=== PATIENT | male | born 2000 | race Caucasian/White ===

== ENCOUNTER 2025-01-19 12:30 | Inpatient (IN) | payer OTHER ==
[~2025-01-19] VITALS: Ht 175.3 cm; Wt 79.8 kg
[2025-01-19 15:50] VITALS: BP 131/82; PULSE 62; RESP 18; TEMP 98.2; O2SAT 99
[2025-01-19 20:00] VITALS: O2SAT 98
[2025-01-19 21:00] VITALS: BP 111/59; PULSE 64; RESP 18; TEMP 99.1; O2SAT 98
[2025-01-19] MEDS: ACETAMINOPHEN 325 MG TABLET PO PRN (21:18)
[2025-01-19] MEDS: FAMOTIDINE 20 MG TABLET PO SCH (21:19)
[2025-01-19] MEDS: SENNOSIDES 8.6 MG TABLET PO SCH (21:19)
[2025-01-19] MEDS: GABAPENTIN 100 MG CAPSULE PO SCH (21:19)
[2025-01-19] MEDS: CHLORHEXIDINE GLUCONATE 0.12% 15 ML UDCUP ORAL RINSE PO SCH (21:19)
[2025-01-19] MEDS: DOCUSATE SODIUM 100 MG CAPSULE PO SCH (21:19)
[2025-01-19] MEDS: MELATONIN 3 MG TABLET PO PRN (22:38)
[2025-01-20 07:23] LABS: PLATELET COUNT (AUTO) 284 K/uL (150-450); RED BLOOD CELL COUNT(AUTO) 4.01 MIL/uL (4.50-5.90); RED CELL DISTRIBUTION WIDTH 13.2 % (11.5-14.5); WHITE BLOOD COUNT (AUTO) 5.5 K/uL (4.5-11.0)
[2025-01-20 07:36] LABS: ASPARTATE AMINOTRANSFERASE 83 U/L (15-37); CALCIUM, TOTAL 9.3 mg/dL (8.8-10.5); CREATININE 1.23 mg/dL (0.60-1.30); GLOMERULAR FILTR. RATE CALC > 60 mL/min (>60); GLUCOSE,RANDOM 93 mg/dL (70-110); SODIUM SERUM 144 mmol/L (136-145); TOTAL PROTEIN, SERUM 6.8 g/dL (6.4-8.2); UREA NITROGEN, BLOOD 16 mg/dL (7-18)
[2025-01-20 08:00] VITALS: BP 121/78; PULSE 55; RESP 19; TEMP 97.7; O2SAT 98
[2025-01-20] MEDS: ENOXAPARIN SODIUM 40 MG/0.4 ML PF SYRINGE SQ SCH (08:18)
[2025-01-20] MEDS: SILVER SULFADIAZINE 1% 25 GM CREAM TUBE TP SCH (08:19)
[2025-01-20] MEDS: LIDOCAINE 5% 36 GM OINTMENT TP SCH (08:19)
[2025-01-20] MEDS: ETHYL ALCOHOL 62% ANTISEPTIC NASAL SANITIZER 0.6 ML AMPUL NASAL SCH (08:19)
[2025-01-20] MEDS: POLYETHYLENE GLYCOL 3350 17 GM PACKET PO SCH (08:20)
[2025-01-20] MEDS: OxyCODONE HCL 5 MG IR TABLET PO PRN (08:20)
[2025-01-20 20:20] VITALS: BP 118/69; PULSE 58; RESP 18; TEMP 98.4; O2SAT 100
[2025-01-20 21:00] VITALS: O2SAT 100
[2025-01-21 05:11] VITALS: BP 116/70; PULSE 59; RESP 18; O2SAT 99
[2025-01-21 08:00] VITALS: BP 114/67; PULSE 53; RESP 19; TEMP 97.5; O2SAT 98
[2025-01-21 20:02] VITALS: BP 126/73; PULSE 59; RESP 18; TEMP 98.1; O2SAT 99
[2025-01-21 23:00] VITALS: O2SAT 99
[2025-01-22 08:05] VITALS: BP 127/72; PULSE 69; RESP 19; TEMP 98.3; O2SAT 98
[2025-01-22] MEDS ORDERED: MELATONIN 3 MG TABLET PO PRN (09:15)
[2025-01-22 20:30] VITALS: BP 110/64; PULSE 64; RESP 18; TEMP 97.8; O2SAT 98
[2025-01-23 08:00] VITALS: BP 109/69; PULSE 45; RESP 19; TEMP 97.9; O2SAT 100
[2025-01-23 09:30] VITALS: BP 116/70; PULSE 61
[2025-01-23 11:03] VITALS: O2SAT 100
[2025-01-23 20:05] VITALS: BP 110/62; PULSE 55; RESP 18; TEMP 97.3; O2SAT 99
[2025-01-24 07:40] VITALS: BP 102/54; PULSE 45; RESP 19; TEMP 97.9; O2SAT 100
[2025-01-24 09:42] VITALS: BP 127/84; PULSE 73; RESP 19; O2SAT 99
[2025-01-24 20:15] VITALS: BP 105/51; PULSE 61; RESP 19; TEMP 98.4; O2SAT 98
[2025-01-24] MEDS: MELATONIN 5 MG TABLET PO PRN (23:32)
[2025-01-25 08:50] VITALS: BP 106/63; PULSE 55; RESP 18; TEMP 97.4; O2SAT 98
[2025-01-25 10:29] VITALS: O2SAT 98
[2025-01-25 20:00] VITALS: BP 123/76; PULSE 66; RESP 19; TEMP 97.6; O2SAT 98
[2025-01-26 08:02] VITALS: BP 108/70; PULSE 56; RESP 20; TEMP 97.7; O2SAT 98
[2025-01-26] MEDS: ERGOCALCIFEROL (VIT D2) 50,000 UNITS [1,250 MCG] CAPSULE PO SCH (08:06)
[2025-01-26 23:20] VITALS: BP 113/52; PULSE 68; RESP 18; TEMP 98; O2SAT 98
[2025-01-26 23:25] VITALS: O2SAT 98
[2025-01-27] MEDS ORDERED: ASPI-4 PO (03:11)
[2025-01-27] MEDS ORDERED: CAPS57CR5 TP (03:20)
[2025-01-27] MEDS ORDERED: POLY17PO47 PO (03:20)
[2025-01-27] MEDS ORDERED: SENN-376 PO (03:20)
[2025-01-27] MEDS ORDERED: GABA-1216 PO (03:20)
[2025-01-27] MEDS ORDERED: IBUP-1493 PO (03:20)
[2025-01-27] MEDS ORDERED: ACET650S39 PO (03:20)
[2025-01-27] MEDS ORDERED: NORT25 PO (03:20)
[2025-01-27] MEDS ORDERED: GABA-1201 PO (03:20)
[2025-01-27] MEDS ORDERED: METH-659 PO (03:20)
[2025-01-27 07:32] LABS: ASPARTATE AMINOTRANSFERASE 32 U/L (15-37); CALCIUM, TOTAL 9.5 mg/dL (8.8-10.5); CREATININE 1.18 mg/dL (0.60-1.30); GLOMERULAR FILTR. RATE CALC > 60 mL/min (>60); GLUCOSE,RANDOM 94 mg/dL (70-110); SODIUM SERUM 138 mmol/L (136-145); TOTAL PROTEIN, SERUM 7.7 g/dL (6.4-8.2); UREA NITROGEN, BLOOD 18 mg/dL (7-18)
[2025-01-27 08:10] VITALS: BP 106/64; PULSE 60; RESP 19; TEMP 97.4; O2SAT 98
[2025-01-27 11:45] VITALS: O2SAT 98
[2025-01-27 20:00] VITALS: BP 106/51; PULSE 65; RESP 18; TEMP 98.1; O2SAT 98
[2025-01-28 01:43] VITALS: O2SAT 98
[2025-01-28 08:00] VITALS: BP 109/70; PULSE 64; RESP 18; TEMP 97.9; O2SAT 98
[2025-01-28 17:50] VITALS: BP 121/74; PULSE 69; RESP 18; TEMP 97.7; O2SAT 98
[2025-01-28 19:57] VITALS: BP 118/60; PULSE 62; RESP 18; TEMP 98.2; O2SAT 99
[2025-01-28 23:47] VITALS: O2SAT 99
[2025-01-29] MEDS ORDERED: POLYETHYLENE GLYCOL 3350 17 GM PACKET PO PRN (07:00)
[2025-01-29] MEDS ORDERED: SENNOSIDES 8.6 MG TABLET PO PRN (07:00)
[2025-01-29 08:00] VITALS: BP 114/65; PULSE 64; RESP 18; TEMP 97.5; O2SAT 100
[2025-01-29 17:40] VITALS: BP 120/68; PULSE 66; RESP 18; TEMP 97.9; O2SAT 99
[2025-01-29 20:13] VITALS: BP 113/57; PULSE 62; RESP 18; TEMP 97.8; O2SAT 99
[2025-01-30 08:00] VITALS: BP 99/72; PULSE 51; RESP 19; TEMP 98; O2SAT 99
[2025-01-30] MEDS ORDERED: ACET-2247 PO (19:00)
[2025-01-30] MEDS ORDERED: LIDOCAINE 5% 36 GM OINTMENT TP PRN (19:00)
[2025-01-30 19:54] VITALS: BP 112/67; PULSE 69; RESP 18; TEMP 98.1; O2SAT 100
[2025-01-30 23:42] VITALS: O2SAT 100
[2025-01-31 08:05] VITALS: BP 111/67; PULSE 61; RESP 19; TEMP 97.7; O2SAT 98
[2025-01-31 21:48] VITALS: BP 106/58; PULSE 68; RESP 18; TEMP 98.8; O2SAT 99
[2025-01-31 22:56] VITALS: O2SAT 99
[2025-02-01 08:00] VITALS: BP 101/70; PULSE 53; RESP 18; TEMP 98.5; O2SAT 100
[2025-02-01 20:00] VITALS: BP 113/71; PULSE 72; RESP 18; TEMP 97.9; O2SAT 100
[2025-02-02 08:00] VITALS: BP 120/72; PULSE 56; RESP 18; TEMP 97.7; O2SAT 99
[2025-02-02 20:00] VITALS: BP 123/72; PULSE 62; RESP 18; TEMP 98; O2SAT 99
[2025-02-02 22:28] VITALS: O2SAT 99
[2025-02-03] MEDS ORDERED: FAMO20 PO (05:33)
[2025-02-03] MEDS ORDERED: ERGO500054 PO (05:33)
[2025-02-03] MEDS ORDERED: SILV20CR11 TP (05:33)
[2025-02-03 08:00] VITALS: BP 122/91; PULSE 73; RESP 17; TEMP 98.4; O2SAT 99
[2025-02-03] MEDS: ASPIRIN 325 MG TABLET PO SCH (09:08)
[2025-02-03 21:20] VITALS: BP 113/60; PULSE 62; RESP 18; TEMP 97.5; O2SAT 99
[2025-02-03 23:30] VITALS: O2SAT 99
[2025-02-04 08:00] VITALS: BP 100/66; PULSE 62; RESP 19; TEMP 97.6; O2SAT 100
[2025-02-04 20:05] VITALS: BP 97/72; PULSE 72; RESP 18; TEMP 97.9; O2SAT 97
[2025-02-05 08:00] VITALS: BP 108/63; PULSE 62; RESP 18; TEMP 97.7; O2SAT 100
[2025-02-05 10:50] VITALS: O2SAT 100
[2025-02-05 20:00] VITALS: BP 103/65; PULSE 67; RESP 20; TEMP 97.7; O2SAT 99
[2025-02-06] MEDS: DOCUSATE SODIUM 100 MG CAPSULE PO PRN (07:56)
[2025-02-06 08:00] VITALS: BP 101/71; PULSE 56; RESP 18; TEMP 97.5; O2SAT 100
[2025-02-06 21:28] VITALS: BP 123/77; PULSE 69; RESP 18; TEMP 98.4; O2SAT 100
[2025-02-06 21:58] VITALS: O2SAT 100
[2025-02-07 08:05] VITALS: BP 102/58; PULSE 60; RESP 18; TEMP 97.5; O2SAT 99
[2025-02-07 20:30] VITALS: BP 119/79; PULSE 64; RESP 18; TEMP 97.7; O2SAT 100
[2025-02-07 21:40] VITALS: O2SAT 100
[2025-02-08 08:10] VITALS: BP 117/76; PULSE 64; RESP 17; TEMP 97.4; O2SAT 99
[2025-02-08] MEDS ORDERED: ASPI-4 PO (13:45)
[2025-02-08] MEDS ORDERED: SILV20CR11 TP (13:45)
[2025-02-08 20:26] VITALS: BP 115/68; PULSE 61; RESP 18; TEMP 97.5; O2SAT 99
[2025-02-08 20:27] VITALS: O2SAT 99
[2025-02-09 08:00] VITALS: BP 107/77; PULSE 61; RESP 17; TEMP 97.5; O2SAT 100
== END 2025-02-09 09:40 | disposition home or self-care (01) | DRG 561 ==
LOC: 2WR 15:47
PROVIDERS: ADMIT Physical Medicine & Rehabilitation; ATTEND Physical Medicine & Rehabilitation
DX: S92.002D Unspecified fracture of left calcaneus, subsequent encounter for fracture with routine healing (principal); S52.91XD Unspecified fracture of right forearm, subsequent encounter for closed fracture with routine healing; Z74.09 Other reduced mobility; M79.605 Pain in left leg; M79.604 Pain in right leg; F51.04 Psychophysiologic insomnia; D64.9 Anemia, unspecified; E88.09 Other disorders of plasma-protein metabolism, not elsewhere classified; R53.81 Other malaise; R74.01 Elevation of levels of liver transaminase levels; R26.9 Unspecified abnormalities of gait and mobility; M54.2 Cervicalgia; R53.1 Weakness; Z79.82 Long term (current) use of aspirin; S62.002D Unspecified fracture of navicular [scaphoid] bone of left wrist, subsequent encounter for fracture with routine healing; S82.61XD Displaced fracture of lateral malleolus of right fibula, subsequent encounter for closed fracture with routine healing; S22.028D Other fracture of second thoracic vertebra, subsequent encounter for fracture with routine healing; S22.018D Other fracture of first thoracic vertebra, subsequent encounter for fracture with routine healing; S22.038 Other fracture of third thoracic vertebra; X58.XXXD Exposure to other specified factors, subsequent encounter
CPT/HCPCS: 80053; 85025; 87081; 97110; 97112; 97116; 97150; 97163; 97167; 97530; 97535; 99366; J1650